=== PATIENT | male | born 1985 | race Caucasian/White ===

== ENCOUNTER 2020-12-06 11:28 | Observation (INO) ==
[2020-12-06] MEDS ORDERED: *HR* LORazepam 0.5 MG TABLET PO ONE (11:53)
[2020-12-06] MEDS ORDERED: Ondansetron ODT 4 MG TAB.RAPDIS SL ONE (11:53)
[2020-12-06 12:07] LABS: Basophils # 0.1 K/mcL (0.0-0.2); Basophils % 1.1 %; Eosinophils # 0.1 K/mcL (0.0-0.6); Hematocrit 46.2 % (37.5-50.1); Hemoglobin 16.6 g/dL (12.9-16.9); Immature Granulocytes % 0.3 % (0-4); Lymphocytes # 2.8 K/mcL (0.6-4.6); Lymphocytes % 45.2 %; Mean Corpuscular HGB Conc 35.9 g/dL (31.6-35.5); Mean Corpuscular Hemoglobin 32.5 pg (28.0-33.3); Mean Corpuscular Volume 90.6 fL (83.0-100.0); Mean Platelet Volume 10.2 fL (9.4-12.4); Monocytes # 0.5 K/mcL (0.0-1.3); Monocytes % 8.6 %; Neutrophils # 2.7 K/mcL (1.6-8.9); Platelet Count 204 K/mcL (140-400); Red Cell Distribution Width 11.3 % (11.5-14.5); Segmented Neutrophils % 43.8 %; White Blood Count 6.3 K/mcL (4.3-11.1)
[2020-12-06] MEDS ORDERED: 0.9 % Sodium Chloride 1,000 ML IVC ONE (12:09)
[2020-12-06] MEDS ORDERED: *HR* LORazepam 2 MG/ML VIAL IVP ONE (12:12)
[2020-12-06] MEDS ORDERED: Ondansetron 4 MG/2 ML VIAL IVP ONE (12:15)
[2020-12-06 12:27] LABS: Acetaminophen < 10 mcg/mL (10-20); BUN/Creatinine Ratio 8 (6-26); Blood Urea Nitrogen 9 mg/dL (6-20); Calcium 9.4 mg/dL (8.6-10.3); Carbon Dioxide 26 mEq/L (23-29); Chloride 102 mEq/L (98-107); Chol/HDL Ratio 2.8 (0-4.9); Cholesterol 194 mg/dL (< 200); Ethanol 245 mg/dL (Less than 10); Glucose 124 mg/dL (70-105); HDL Cholesterol 69 mg/dL (40-59); Osmolality,Calculated 284 (280-300); Potassium 3.7 mEq/L (3.5-5.1); Salicylate < 2.5 mg/dL (15.0-30.0); Sodium 137 mEq/L (136-145); Triglycerides 434 mg/dL (< 150); eGFR For African Americans > 60 (> 60); eGFR For Non-African Americans > 60 (> 60)
[2020-12-06 12:50] LABS: Bilirubin,Urine Negative (Negative); Blood,Urine Negative (Negative); Clarity,Urine Clear (Clear); Color,Urine Colorless (Yellow); Glucose,Urine (UA) Normal (Normal); Ketones,Urine Negative (Negative); Leukocyte Esterase,Urine Negative (Negative); Nitrite,Urine Negative (Negative); PH,Urine 7.5 pH Units (5.0-8.0); Protein,Urine Negative (Neg-Trace); Specific Gravity,Urine 1.007 (1.010-1.025); Urobilinogen,Urine Normal (Normal)
[2020-12-06 13:07] LABS: Amphetamine Screen,Urine Negative ng/mL (Cutoff=1000); Barbiturate Screen,Urine Negative ng/mL (Cutoff=200); Benzodiazepines Screen,Urine Negative ng/mL (Cutoff=200); Cannabinoid Screen,Urine Positive ng/mL (Cutoff = 50); Cocaine Screen,Urine Negative ng/mL (Cutoff= 300); Opiate Screen,Urine Negative ng/mL (Cutoff=300); Phencyclidine Screen,Urine Negative ng/mL (Cutoff=25)
[2020-12-06] MEDS ORDERED: Folic Acid 1 MG TABLET PO ONE (13:15)
[2020-12-06] MEDS ORDERED: Thiamine (B-1) 100 MG TABLET PO ONE (13:15)
[2020-12-06] MEDS ORDERED: Metoclopramide 10 MG/2 ML VIAL IVP ONE (13:44)
[2020-12-06] MEDS ORDERED: *HR* Promethazine 25 MG/ML VIAL IM PRN (14:10)
[2020-12-06] MEDS ORDERED: *HR* LORazepam 2 MG/ML VIAL IVP PRN ×2 (14:10)
[2020-12-06] MEDS ORDERED: Naloxone 0.4 MG/ML INJ IVP PRN (14:10)
[2020-12-06] MEDS: Ringers Solution, Lactated 1,000 ML IVC SCH ×2 (14:30→21:07)
[2020-12-06] MEDS: *HR* LORazepam 2 MG/ML VIAL IVP PRN ×2 (14:46→21:07)
[2020-12-06] MEDS: Ondansetron 4 MG/2 ML VIAL IVP PRN (21:12)
[2020-12-06] MEDS: Acetaminophen 325 MG TABLET PO PRN (21:20)
[2020-12-07 05:32] LABS: Hematocrit 41.3 % (37.5-50.1); Mean Corpuscular HGB Conc 35.6 g/dL (31.6-35.5); Mean Corpuscular Hemoglobin 32.7 pg (28.0-33.3); Mean Corpuscular Volume 91.8 fL (83.0-100.0); Mean Platelet Volume 10.5 fL (9.4-12.4); Platelet Count 163 K/mcL (140-400); Red Cell Distribution Width 11.1 % (11.5-14.5); White Blood Count 5.4 K/mcL (4.3-11.1)
[2020-12-07 05:36] LABS: Hemoglobin 14.7 g/dL (12.9-16.9)
[2020-12-07 05:50] LABS: BUN/Creatinine Ratio 7 (6-26); Blood Urea Nitrogen 8 mg/dL (6-20); Calcium 8.5 mg/dL (8.6-10.3); Carbon Dioxide 28 mEq/L (23-29); Chloride 104 mEq/L (98-107); Glucose 97 mg/dL (70-105); Magnesium 1.4 mg/dL (1.6-2.6); Osmolality,Calculated 286 (280-300); Potassium 3.8 mEq/L (3.5-5.1); Sodium 139 mEq/L (136-145); eGFR For African Americans > 60 (> 60); eGFR For Non-African Americans > 60 (> 60)
[2020-12-07] MEDS: Thiamine (B-1) 100 MG TABLET PO SCH (07:27)
[2020-12-07] MEDS: Folic Acid 1 MG TABLET PO SCH (07:27)
[2020-12-07] MEDS: *HR* LORazepam 2 MG/ML VIAL IVP PRN ×3 (07:27→20:15)
[2020-12-07] MEDS ORDERED: Magnesium Sulfate 1 GM/102 ML PIGGYBACK IVPB ONE (07:47)
[2020-12-07 16:50] LABS: Estimated Average Glucose 117 mg/dl; Hemoglobin A1C 5.7 %
[2020-12-07 17:04] LABS: Lipase 27 Units/L (11-82)
[2020-12-07] MEDS: Ondansetron 4 MG/2 ML VIAL IVP PRN (18:24)
[2020-12-07] MEDS: Nicotine 14 MG PATCH.TD24 TD PRN (20:58)
[2020-12-08] MEDS ORDERED: *HR* LORazepam 2 MG/ML VIAL IVP ONE ×2 (02:40→09:29)
[2020-12-08 03:20] LABS: Hematocrit 46.6 % (37.5-50.1); Mean Corpuscular HGB Conc 35.8 g/dL (31.6-35.5); Mean Corpuscular Hemoglobin 32.9 pg (28.0-33.3); Mean Corpuscular Volume 91.9 fL (83.0-100.0); Mean Platelet Volume 10.4 fL (9.4-12.4); Platelet Count 183 K/mcL (140-400); Red Blood Count 5.07 M/mcL (4.19-5.50); Red Cell Distribution Width 11.3 % (11.5-14.5); White Blood Count 7.3 K/mcL (4.3-11.1)
[2020-12-08 03:22] LABS: Hemoglobin 16.7 g/dL (12.9-16.9)
[2020-12-08 03:43] LABS: BUN/Creatinine Ratio 10 (6-26); Blood Urea Nitrogen 11 mg/dL (6-20); Calcium 8.8 mg/dL (8.6-10.3); Carbon Dioxide 26 mEq/L (23-29); Chloride 101 mEq/L (98-107); Glucose 96 mg/dL (70-105); Magnesium 2.2 mg/dL (1.6-2.6); Osmolality,Calculated 283 (280-300); Potassium 3.9 mEq/L (3.5-5.1); Sodium 137 mEq/L (136-145); eGFR For African Americans > 60 (> 60); eGFR For Non-African Americans > 60 (> 60)
[2020-12-08] MEDS: *HR* LORazepam 2 MG/ML VIAL IVP PRN ×3 (04:51→20:43)
[2020-12-08] MEDS: Folic Acid 1 MG TABLET PO SCH (08:42)
[2020-12-08] MEDS: Thiamine (B-1) 100 MG TABLET PO SCH (08:42)
[2020-12-08] MEDS: Acetaminophen 325 MG TABLET PO PRN (08:53)
[2020-12-08] MEDS: Nicotine 14 MG PATCH.TD24 TD PRN (20:43)
[2020-12-09] MEDS ORDERED: *HR* LORazepam 2 MG/ML VIAL IVP ONE (02:16)
[2020-12-09] MEDS: Acetaminophen 325 MG TABLET PO PRN (03:42)
[2020-12-09 05:27] LABS: Hematocrit 46.6 % (37.5-50.1); Hemoglobin 16.4 g/dL (12.9-16.9); Mean Corpuscular HGB Conc 35.2 g/dL (31.6-35.5); Mean Corpuscular Hemoglobin 32.5 pg (28.0-33.3); Mean Corpuscular Volume 92.5 fL (83.0-100.0); Mean Platelet Volume 10.3 fL (9.4-12.4); Platelet Count 174 K/mcL (140-400); Red Blood Count 5.04 M/mcL (4.19-5.50); Red Cell Distribution Width 11.4 % (11.5-14.5); White Blood Count 6.8 K/mcL (4.3-11.1)
[2020-12-09 05:47] LABS: BUN/Creatinine Ratio 14 (6-26); Blood Urea Nitrogen 13 mg/dL (6-20); Calcium 9.2 mg/dL (8.6-10.3); Carbon Dioxide 23 mEq/L (23-29); Chloride 103 mEq/L (98-107); Glucose 96 mg/dL (70-105); Magnesium 2.2 mg/dL (1.6-2.6); Osmolality,Calculated 282 (280-300); Potassium 3.8 mEq/L (3.5-5.1); Sodium 136 mEq/L (136-145); eGFR For African Americans > 60 (> 60); eGFR For Non-African Americans > 60 (> 60)
[2020-12-09] MEDS: Folic Acid 1 MG TABLET PO SCH (07:14)
[2020-12-09] MEDS: Thiamine (B-1) 100 MG TABLET PO SCH (07:14)
[2020-12-09 11:05] VITALS: BP 129/87
== END 2020-12-09 13:15 | disposition home or self-care (01) ==
LOC: EMEROOARM 11:28 → 3BNU 11:28 → SUATTDRO 13:42 → 3BNU 15:47
PROVIDERS: ADMIT Internal Medicine; ATTEND Registered Nurse